=== PATIENT | female | born 1950 | race Caucasian/White ===

== ENCOUNTER 2025-08-08 09:49 | Day surgery (SDC) | payer BC, SELFPAY ==
[2025-07-28 11:24] LABS: Hematocrit 40.1 % (37.0-47.0); Hemoglobin 13.4 g/dL (12.0-16.0); Mean Corp Hgb Conc. 33.4 g/dL (33.0-37.0); Mean Corpuscular Volume 91.1 fL (81.0-99.0); Nucleated Red Blood Cells % 0 %; Platelet Count 210 10^3/uL (130-400); Red Cell Dist. Width 13.2 % (11.5-14.5)
[2025-07-28 11:37] LABS: INR 1.20; PT 15.3 Sec (11.4-14.6)
[2025-07-28 11:40] LABS: ALT (SGPT) 25 U/L (0-35); AST (SGOT) 23 U/L (14-36); Albumin 4.6 g/dl (3.5-5.0); Alkaline Phosphatase 76 U/L (38-126); Blood Urea Nitrogen 13 mg/dl (7-17); Calcium 9.7 mg/dl (8.4-10.2); Carbon Dioxide 30 mmol/L (22-30); Chloride 106 mmol/L (98-107); Glucose 102 mg/dl (70-99); Magnesium 2.1 mg/dl (1.6-2.3); Potassium 3.8 mmol/L (3.5-5.1); Sodium 141 mmol/L (135-145); Total Protein 7.9 g/dl (6.3-8.2); eGFR > 60.00
--- NOTE | 2025-07-28 12:07 | HPS.HSE ---
Family Physician
-
Family Physician: Cameron Johnson
Chief Complaint
-
Paroxysmal atrial fibrillation.
History of Present Illness
The patient is a 75 year old female presenting today for paroxysmal atrial fibrillation. The patient was first diagnosed with this arrhythmia in December of this year. In December, she saw her primary care physician for clearance prior to her
bilateral cataract extraction. Her primary care physician noted irregularity in her heart rhythm on physical exam. An EKG confirmed the presence of atrial fibrillation. She was started on Eliquis at that time for oral anticoagulation. She was also
advised to follow-up with Cardiology for further treatment options. She fortunately was able to see Cardiology the very next day. She was started on Diltiazem for pharmacological therapy. She notes lightheadedness, dizziness, and fatigue, however,
while on this medication. Her most recent 14 day Holter monitor revealed a 28% atrial fibrillation burden. She is interested in pursuing pulmonary vein isolation at this time for further arrhythmia management. She denies any current complaints today
such as chest pain, shortness of breath, nausea, vomiting, diarrhea, cough, sore throat, or fever.
Medical History
Past Medical History
Past Medical History: Reports Other
Additional Past Medical History:
1. Paroxysmal atrial fibrillation, pharmacological therapy with Diltiazem and oral anticoagulation with Eliquis.
2. Hypertension.
3. Hyperlipidemia.
4. Mild-moderate mitral regurgitation.
5. Venous varicosities.
6. Osteoarthritis, status post right total knee arthroplasty 06/2023.
7. Vertigo.
8. Multinodular thyroid per pre-ablation chest CT.
9. Malignant melanoma, status post Mohs.
10. Osteoporosis.
11. Bilateral dry eyes.
12. Prediabetes.
13. Anxiety.
14. Depression.
15. Hearing impairment bilaterally.
Past Surgical History: Reports Other
Additional Past Surgical History:
1. Right total knee arthroplasty.
2. Left humeral fracture repair.
3. Hysterectomy.
4. Mohs surgery.
5. Bilateral cataract extraction.
Social History
Tobacco: Non-smoker
Alcohol: None
Personal:
Living: Other (She lives with her in a 2 story home. )
Family History
Family History: Not pertinent
Allergies / Home Medications
Allergy/Medication List:
Home medications:
1. Tylenol extra strength 500 mg p.o. every 6 hours as needed.
2. Eliquis 5 mg p.o. twice a day.
3. Cholecalciferol 25 mg p.o. every evening.
4. Cyclosporine 1 drop ophthalmic twice a day.
5. Diltiazem HCl 120 mg p.o. daily.
6. Losartan-HCTZ 50/12.5 mg, 1/2 tablet p.o. daily.
7. Multivitamin 1 tablet p.o. every evening.
8. Rosuvastatin 10 mg p.o. every evening.
Allergies: Codeine.
Adverse drug reactions: Oxycodone.
Review of Systems
-
A 12 point ROS was completed and negative except as noted: Yes
Physical Exam
Vital Signs
Blood pressure 156/80 in the setting of anxiety. Heart rate 78. Respirations 18. Pulse ox 99% on room air.
Height 5 feet, 2 inches. Weight 73.1 kg. BMI 29.5.
Physical Exam
General: Well Developed, Well Nourished and No Apparent Distress
HEENT: NormoCephalic, Moist mucous membranes, Atraumatic and PERRLA
Respiratory: Clear
Cardiac: Regular Rhythm
GI: Soft, Non Tender and Non Distended
Musculoskeletal: No Edema and Normal Gait & Station
Skin: Warm and Dry
Neuro: AO x 3 and Nonfocal/grossly intact
Laboratory Results
-
07/28/25 11:12
07/28/25 11:12
Laboratory Results
PT 15.3 Sec (11.4-14.6) H 07/28/25 11:12
INR 1.20 07/28/25 11:12
Total Bilirubin 1.0 mg/dl (0.2-1.3) 07/28/25 11:12
AST 23 U/L (14-36) 07/28/25 11:12
ALT 25 U/L (0-35) 07/28/25 11:12
Alkaline Phosphatase 76 U/L (38-126) 07/28/25 11:12
Magnesium 2.1.
Type and screen O positive.
EKG 07/28/2025: Normal sinus rhythm. Septal infarct, age undetermined.
Chest CT 07/28/2025: Normal, conventional pulmonary venous anatomy. No left atrial filling defect/thrombus is identified. Enlarged, multinodular thyroid gland. This could be more completely evaluated with a follow-up thyroid ultrasound.
Echocardiogram 01/03/2025: Ejection fraction is 60-65%. Grade 1 diastolic dysfunction. No evidence of significant valvular disease. Mild-moderate mitral regurgitation. No evidence of pulmonary hypertension.
Nuclear stress test 01/05/2025: There is no evidence of myocardial ischemia or scar.
Impression/Plan
-
IMPRESSION/PLAN:
1. Paroxysmal atrial fibrillation: The patient is in need of pulmonary vein isolation with Dr. oMi Cullen on 08/08/2025. The benefits and risks of the procedure have been explained to the patient. The patient understands these risks and wishes to
proceed. She will not be required to undergo a pre-procedural transesophageal echocardiogram as she has been compliant with her home oral anticoagulation. She is aware to continue Eliquis uninterrupted prior to her procedure. She will take no
medications the morning of her ablation.
2. Multinodular thyroid per pre-ablation chest CT: The patient was notified of her thyroid nodules by phone call pre-operatively. A copy of her chest CT will be forwarded to her primary care physician, Dr. Cameron Johnson, for further work-up. Radiology
has recommended a follow-up ultrasound for further evaluation. Her thryoid nodule work-up should not delay her surgery and she can proceed as planned.
[2025-07-28 12:22] VITALS: BMI 29.5
[2025-08-08] VITALS (13 sets, daily range): BP systolic 116–162; BP diastolic 66–139; BMI 29.8
[2025-08-08 12:11] LABS: ACT-LR - POC 347 Seconds (116-155)
--- NOTE | 2025-08-08 12:49 | ITS.CL.ABL ---
[employer] - Ablation
Ablation
Procedure Report:
ELECTROPHYSIOLOGY ABLATION STUDY
DATE:: August 08, 2025�����������������������������REFERRING: Dr. Jesus Stallings
INDICATION: Paroxysmal supraventricular tachycardia in the form of atrial fibrillation.��As above
HISTORY: See H and P.��As above
ANTIARRHYTHMIC DRUG: Diltiazem
PRE-PROCEDURE WILLIE: No intracardiac thrombus
PRESENTING RHYTHM: Sinus bradycardia
'TIME-OUT':��called and confirmed.
SEDATION/ANESTHESIA:��provided via the anesthesia department using general anesthesia (LMA).
INTRAVENOUS/ARTERIAL ACCESS:
Right femoral venous -8Fr
Left femoral venous - 8 Fr, 6 Fr
Brohes-lu-ohdob suture bilaterally
Ultrasound guidance for bilateral femoral vein access was utilized by me to obtain access with demonstration of normal anatomy
CHADS-VASC Score:
HAS-Bled Score
PROCEDURE:
1.��A decapolar CS catheter was placed within the CS for mapping and pacing.��This was also used as the reference catheter for the 3-D map.
2. The intracardiac ultrasound catheter was positioned in the RA to identify the FO for targeting of transseptal puncture, assist��in identification of the pulmonary vein ostia, monitoring pre and post ablation pulmonary vein flow velocities,
monitoring for 'bubble' formation during RF application as a sign of thermal injury,��and to monitor for pericardial effusion during mapping and ablation procedure.���Left atrial size, LV ejection fraction, and pulmonary vein flows were monitored
pre and post ablation procedure. The other valves were inspected and found to be free of significant regurgitation or stenosis.
3.��Half of the calculated heparin bolus was administered prior to the first transeptal puncture.��Transseptal puncture was performed to diagnose RA and LA pressure so that safetey of LA mapping and ablation could be further assessed, and to access
the left atrium and pulmonary veins for mapping and ablation.��This entailed advancing an 16.8 Armenian sheath with dilator into the superior vena cava and withdrawing both (monitoring intracardiac ultrasound, fluoroscopy and tip pressure) with the
tip oriented toward the atrial septum.��The fossa ovalis was engaged (indicated by sudden displacement of the sheath tip as well as tenting of the fossa seen on intracardiac ultrasound).��Left atrial access required a pass with the Brockenjesseugh
needle extended.��Left atrial catheter position was confirmed by pressure monitoring (RA mean pressure 4 mm Hg and LA mean presure 10 mm Hg), LA saturation (99%),��as well as fluoroscopy.��The sheath was advanced over the dilator and positioned in
the left atrium.��This procedure was repeated for the Agilis sheath.��The remainder of the calculated heparin bolus was administered and heparin was
infused to maintain ACT at 300 -350 seconds throughout the case.
4.��RA pacing was performed via the proximal decapolar poles and LA pacing was performed via the distal decapolr poles.
5. A quadrapolar catheter was first positioned at the His position for His Bundle recording which was tagged via the 3-D Navex sytem, and then passed to the RVA for RV pacing and recording.
6. The mobile mapping system and Penta spline were placed in each of the LIPV, LSPV, RSPV and the RIPV.��
7.��Next, a 3-D map was created using Navex.���A 3-D reconstructed CT image was compared to the 3-D Navex map to assist in anatomic interpretation, mapping and ablation.��The CT image and the NavX image were fused.
8. A total of 54 lesions were given to the veins in all of in basket pose and flower to the roof posterior wall and floor of the left atrium. Initial set was created with the open mapping system and post procedure electroanatomic voltage map
demonstrated entrance and exit block in all 4 pulmonary veins as well as the roof posterior wall and floor of the left atrium with concomitant voltage abnormality delineated.
9. Normal sinus node function noted.
TOTAL FLOURO TIME: 21 minutes to 13 mGy
TOTAL RF DURATION: 0 minutes
REVERSAL OF HEPARIN: 45 mg of protamine, slow IV administration
COMPLICATIONS:
None
Intracardiac US shows no pericardial effusion post ablation.
SUMMARY:��
Complex left atrial mapping and ablation.
Isolation of all 4 pulmonary veins as well as the roof posterior wall for the left atrium.
RECOMMENDATIONS:
1. Ambulate in 4 hours
2. Resume anticoagulation
3. Continue diltiazem
4.��Consider same-day discharge
Copy to: Dr. Lee:
[2025-08-08 13:10] LABS: ACT-LR - POC > 397 Seconds (116-155)
--- NOTE | 2025-08-08 16:12 | W.PN.UPDATE ---
Update Note
Progress Note Update
75yo WF s/p PVI (Same day). She denies cp, sob, corina diet, EKG SR, b/l groins c/d/i no HT. She will resume Eliquis tonight and continue diltiazem. Activity restrictions reviewed. She will f/u Dr. Stallings in 3mo. She is for d/c home after 530p if groins
stable.
== END 2025-08-08 17:35 | disposition home or self-care (01) ==
LOC: CATH 09:49
PROVIDERS: ATTENDING PHYSICIAN Internal Medicine Cardiovascular Disease; FAMILY PHYSICIAN Internal Medicine; OTHER PHYSICIAN Student in an Organized Health Care Education/Training Program
DX: I48.0 Paroxysmal atrial fibrillation (principal); I10 Essential (primary) hypertension; E78.5 Hyperlipidemia, unspecified; H91.93 Unspecified hearing loss, bilateral; E04.2 Nontoxic multinodular goiter; I34.0 Nonrheumatic mitral (valve) insufficiency; I47.10 Supraventricular tachycardia, unspecified; M19.90 Unspecified osteoarthritis, unspecified site; M81.0 Age-related osteoporosis without current pathological fracture; Z79.01 Long term (current) use of anticoagulants; Z85.820 Personal history of malignant melanoma of skin; Z88.5 Allergy status to narcotic agent; Z90.710 Acquired absence of both cervix and uterus; Z96.651 Presence of right artificial knee joint; Z98.41 Cataract extraction status, right eye; Z98.42 Cataract extraction status, left eye; R73.03 Prediabetes; Z79.899 Other long term (current) drug therapy
CPT/HCPCS: C1894; C1730; C1769; C1892; C1759; 36415; 75572; 80053; 83735; 85025; 85347; 85610; 86850; 86900; 86901; 93005; 93656; 93657; C1766; Q9967